=== PATIENT | male | born 1970 | race Caucasian/White ===

== ENCOUNTER 2017-02-07 09:59 | Day surgery (SDC) | payer OTHER ==
[2017-02-02 10:04] VITALS: BMI 29.0
[2017-02-07] MEDS ORDERED: LIDO 2%/EPI 1:200000 PRESRVFRE (20 ML SDVIAL) INF ONE (11:30)
[2017-02-07] MEDS ORDERED: LIDOCAINE 1%/EPI 1:100000 (20 ML MULTI DOSE VIAL) ONE (11:38)
[2017-02-07 12:44] VITALS: TEMP 97.9
[2017-02-07 13:06] VITALS: BP 133/71; PULSE 70
--- NOTE | 2017-02-08 09:45 | OP ---
DATE OF OPERATION: 02/07/2017 PREOPERATIVE DIAGNOSIS: Right elbow mass. POSTOPERATIVE DIAGNOSIS: Right elbow mass. OPERATIVE PROCEDURE: Right elbow mass excision. SURGEON: Edwin Cardenas MD ANESTHESIA: Local. COMPLICATIONS: None. ESTIMATED BLOOD LOSS: Minimal. INDICATION FOR PROCEDURE: The patient is a 46-year-old male with the above finding, indicated for operative treatment. Risks, benefits, and alternatives were discussed with the patient at length. Proper informed consent was obtained. DESCRIPTION OF PROCEDURE: After proper identification of the patient and the correct operative site, the patient was brought to the operating room and placed supine on the operative table. All prominences were well padded. Local anesthesia was given with 1% lidocaine with epinephrine. Incision was then taken sharply through the skin with blunt and sharp dissection through subcutaneous tissues. Mass was found to be present along with scar tissue in the area from a prior laceration. The mass, however, was a discrete, well-circumscribed, 5 mm x 5 mm mass and was excised in whole and sent for pathologic evaluation. The wound was irrigated with saline, repaired with a 5-0 nylon suture. Sterile dressings were applied. The patient was reversed from anesthesia and brought to the recovery room in stable condition. He tolerated the procedure well. Danny RODRIGUEZ/[id number]
--- NOTE | 2017-02-08 15:10 | PATH ---
Surgical Pathology Report Patient Name: JAY MARTINEZ [facility]. Rec. #: [id number] /Age/Gender: 1970 (Age: 46) / M Account: [id number] Location: [facility] Taken: 02/07/2017 Received: 02/07/2017 Reported: 02/08/2017 Physicians: Edwin Cardenas M.D. Specimen(s) Received RIGHT ELBOW MASS Clinical History Mass right elbow Final Diagnosis ELBOW, RIGHT, MASS, EXCISION: FIBROMA. Electronically Signed Davida Mendiola M.D. Gross Description Received in formalin labeled "right elbow mass," is a 1.3 x 0.7 x 0.4 cm pink-damon, irregular portion of soft tissue. The specimen is bisected and entirely submitted in one cassette. /02/07/201702/07/2017
== END 2017-02-07 13:05 | disposition home or self-care (01) ==
LOC: FASU 09:59
PROVIDERS: ATTEND Orthopaedic Surgery Hand Surgery
PROC: 0JBG0ZZ Excision of Right Lower Arm Subcutaneous Tissue and Fascia, Open Approach (ICD-10-PCS; principal; 2017-02-07 12:03)
DX: D21.11 Benign neoplasm of connective and other soft tissue of right upper limb, including shoulder (principal)
CPT/HCPCS: 88305-TC